=== PATIENT | female | born 2000 | race African-American/Black ===

== ENCOUNTER 2021-03-28 00:43 | Emergency (ER) | payer MEDICAID ==
--- NOTE | 2021-03-28 01:10 | EDM.PDOC ---
ED HPI GENERAL MEDICAL PROBLEM - General Chief Complaint: General Stated Complaint: NOT FEELING WELL Time Seen by Provider: 03/28/21 01:09 Source of Information: Reports: Patient History Limitations: Reports: No Limitations - History of Present Illness INITIAL COMMENTS - FREE TEXT/NARRATIVE: pt arrived with a sore throat and body aches. She states it hit her about half way through her shift. Onset: Today Duration: Hour(s): Location: Reports: Neck, Generalized Associated Symptoms: Reports: Cough, Headaches head Pain Score (Numeric/FACES): 8 - Related Data Allergies Allergy/AdvReac Type Severity Reaction Status Date / Time ibuprofen Allergy Other Verified 03/28/21 01:05 nickel Allergy Itching Verified 03/28/21 01:05 Penicillins Allergy Anaphylactic Verified 03/28/21 01:05 Shock Home Meds: Home Meds Sertraline [Zoloft] 25 mg PO BID 03/28/21 [History] Social & Family History - Caffeine Use Caffeine Use: Reports: Coffee, Soda, Tea - Recreational Drug Use Recreational Drug Use: Yes Recreational Drug Type: Reports: Marijuana/Hashish Recreational Drug Use Frequency: Weekly ED ROS GENERAL - Review of Systems Review Of Systems: See Below Constitutional: Reports: Fever, Chills, Other ( body aches. ) HEENT: Reports: Throat Pain, Other (pt has normal taste and smell) Respiratory: Reports: No Symptoms Cardiovascular: Reports: No Symptoms Endocrine: Reports: No Symptoms GI/Abdominal: Reports: No Symptoms : Reports: No Symptoms Musculoskeletal: Reports: No Symptoms Skin: Reports: No Symptoms Neurological: Reports: No Symptoms ED EXAM, GENERAL - Physical Exam Exam: See Below Free Text/Narrative:: pt arrived with a sore throat. She felt like she had a fever earlier. Exam Limited By: No Limitations General Appearance: Alert, Anxious, Mild Distress Ears: Normal TMs Nose: Normal Inspection Throat/Mouth: Inflammation, Other ( exudate present. ) Head: Atraumatic Neck: Normal Inspection, Lymphadenopathy (R), Lymphadenopathy (L) Respiratory/Chest: No Respiratory Distress Cardiovascular: Regular Rate, Rhythm GI/Abdominal: Soft, Non-Tender (Female) Exam: Deferred Rectal (Female) Exam: Deferred Back Exam: Normal Inspection Extremities: Normal Inspection Neurological: Alert, Oriented, Normal Cognition Psychiatric: Normal Affect Course - Vital Signs Last Recorded V/S: Last Vital Signs Temp 36.6 C 03/28/21 01:06 Pulse 108 H 03/28/21 01:06 Resp 18 03/28/21 01:06 BP 125/72 03/28/21 01:06 Pulse Ox 97 03/28/21 01:06 - Orders/Labs/Meds Orders: Active Orders 24 hr Category Date Time Status CULTURE STREP A CONFIRMATION [] Stat Lab 03/28/21 01:15 Results STREP SCRN A RAPID W CULT CONF [] Stat Lab 03/28/21 01:15 Results Labs: Laboratory Tests 03/28/21 03/28/21 Range/Units 01:25 01:30 WBC 9.9 (4.5-11.0) K/uL RBC 4.66 (3.30-5.50) M/uL Hgb 13.8 (12.0-15.0) g/dL Hct 41.2 (36.0-48.0) % MCV 88 (80-98) fL MCH 30 (27-31) pg MCHC 34 (32-36) % Plt Count 280 (150-400) K/uL Neut % (Auto) 74 H (36-66) % Lymph % (Auto) 15 L (24-44) % Webb % (Auto) 10 H (2-6) % Eos % (Auto) 1 L (2-4) % Baso % (Auto) 0 (0-1) % Monoscreen Negative (NEGATIVE) - Re-Assessments/Exams Free Text/Narrative Re-Assessment/Exam: 03/28/21 02:30 pt had a neg strept and a neg mono. Her wbc was not high but it did appear to look like a bacterial shift. Departure - Departure Time of Disposition: 02:20 Disposition: Home, Self-Care 01 Condition: Fair Clinical Impression: Acute bacterial pharyngitis - Discharge Information Instructions: Pharyngitis, [id number] Referrals: PCP,None [Primary Care Provider] - Forms: ED Department Discharge Care Plan Goals: push fluids, tylenol and motrin for body aches. zithromax rtc if not improving. Sepsis Event Note (ED) - Evaluation Sepsis Screening Result: No Definite Risk - Focused Exam Vital Signs: Vital Signs Temp Pulse Resp BP Pulse Ox 03/28/21 01:06 36.6 C 108 H 18 125/72 97 - My Orders Last 24 Hours: My Active Orders 03/28/21 01:15 CULTURE STREP A CONFIRMATION [RM] Stat STREP SCRN A RAPID W CULT CONF [] Stat - Assessment/Plan Last 24 Hours: My Active Orders 03/28/21 01:15 CULTURE STREP A CONFIRMATION [RM] Stat STREP SCRN A RAPID W CULT CONF [] Stat
== END 2021-03-28 02:30 | disposition home or self-care (01) ==
LOC: JP.ED 00:43
DX: J02.8 Acute pharyngitis due to other specified organisms (principal); B96.89 Other specified bacterial agents as the cause of diseases classified elsewhere; Z88.0 Allergy status to penicillin; Z88.8 Allergy status to other drugs, medicaments and biological substances; Z91.048 Other nonmedicinal substance allergy status
CPT/HCPCS: 36415; 85025; 86308; 87081; 87880-QW; 99283

== ENCOUNTER 2021-07-09 15:35 | Emergency (ER) | payer MEDICAID, OTHER ==
[2021-07-09] MEDS ORDERED: Dental Adhesive 1 Tube DENT ONE (16:16)
--- NOTE | 2021-07-09 16:49 | EDM.PDOC ---
ED HPI GENERAL MEDICAL PROBLEM - General Chief Complaint: ENT Problem Stated Complaint: PAIN IN L JAW AND HEADACHE Time Seen by Provider: 07/09/21 16:05 Source of Information: Reports: Patient History Limitations: Reports: No Limitations - History of Present Illness Onset: Gradual Onset Date: 06/18/21 Duration: Getting Worse Location: Reports: Other (Lower left molar back tooth broken) Quality: Reports: Ache Severity: Moderate Improves with: Reports: None Worsens with: Reports: Breathing, Cold Therapy, Heat Therapy Context: Reports: Trauma (Broken tooth) Associated Symptoms: Reports: No Other Symptoms Treatments [employer]: Reports: Acetaminophen, NSAIDS left tooth Pain Score (Numeric/FACES): 9 - Related Data Allergies Allergy/AdvReac Type Severity Reaction Status Date / Time ibuprofen Allergy Other Verified 07/09/21 15:56 nickel Allergy Itching Verified 07/09/21 15:56 Penicillins Allergy Anaphylactic Verified 07/09/21 15:56 Shock Home Meds: Home Meds Sertraline [Zoloft] 25 mg PO BID 03/28/21 [History] traZODone 50 mg PO ASDIRECTED PRN 07/09/21 [History] Past Medical History - Past Health History Medical/Surgical History: Denies Medical/Surgical History Psychiatric History: Reports: Anxiety, Depression, Psych Hospitalization(s) - Infectious Disease History Infectious Disease History: Reports: None Social & Family History - Caffeine Use Caffeine Use: Reports: Coffee, Soda, Tea - Recreational Drug Use Recreational Drug Type: Reports: Marijuana/Hashish Recreational Drug Use Frequency: Weekly ED ROS ENT - Review of Systems Review Of Systems: See Below Constitutional: Reports: No Symptoms HEENT: Reports: Other (Oral pain left lower jaw into neck and ear. Patient has broken tooth molar #17) Neurological: Reports: No Symptoms ED EXAM, ENT - Physical Exam Exam: See Below Exam Limited By: No Limitations General Appearance: Alert, Moderate Distress Mouth/Throat: Normal Lips, Dental Pain (Broken tooth #17 lower left back tooth), Dental Trauma (Broken tooth approximately 3 weeks ago). No: Gum Swelling Neck: Normal Inspection, Supple, Non-Tender Course - Vital Signs Last Recorded V/S: Last Vital Signs Temp 36.4 C 07/09/21 15:58 Pulse 77 07/09/21 15:58 Resp 16 07/09/21 15:58 BP 125/80 07/09/21 15:58 Pulse Ox 77 L 07/09/21 15:58 - Orders/Labs/Meds Meds: Medications Discontinued Medications Generic Name Dose Route Start Last Admin Trade Name Haseeb PRShira Reason Stop Dose Admin Denture Adhesive 1 applic 07/09/21 16:16 07/09/21 16:57 Dental Adhesive 1 Tube DENT 07/09/21 16:17 1 applic ONETIME ONE Administration - Re-Assessments/Exams Free Text/Narrative Re-Assessment/Exam: 07/09/21 16:48 Dental packing to cover root of broken tooth. Patient tolerated application without difficulty. Patient did have relief once root was covered. Patient instructed to see dentist immediately. Area is not infected at this time. Departure - Departure Time of Disposition: 16:58 Disposition: Home, Self-Care 01 Condition: Good Clinical Impression: Broken tooth - Discharge Information Instructions: Tooth Injuries, [id number] Referrals: PCP,None [Primary Care Provider] - Forms: ED Department Discharge Additional Instructions: Make appointment dentist GIBSON. Reapply dental packing if it comes out prior to seeing dentist. Sepsis Event Note (ED) - Evaluation Sepsis Screening Result: No Definite Risk - Focused Exam Vital Signs: Vital Signs Temp Pulse Resp BP Pulse Ox 07/09/21 15:58 36.4 C 77 16 125/80 77 L 07/09/21 15:47 36.4 C 77 16 125/80 77 L - Assessment/Plan Assessment:: Broken tooth Plan: Sentiment applied to broken tooth. No infection noted at this time. Patient instructed to seek out dentist immediately.
== END 2021-07-09 16:58 | disposition home or self-care (01) ==
LOC: JP.ED 15:35
DX: S02.5XXA Fracture of tooth (traumatic), initial encounter for closed fracture (principal); Z88.0 Allergy status to penicillin; Z91.09 Other allergy status, other than to drugs and biological substances; Z88.8 Allergy status to other drugs, medicaments and biological substances; X58.XXXA Exposure to other specified factors, initial encounter
CPT/HCPCS: 99282; A9270

== ENCOUNTER 2023-03-06 17:16 | Emergency (ER) | payer OTHER ==
[2023-03-06] MEDS ORDERED: Sodium Chloride 0.9% 10 ML Syringe FLUSH PRN (17:37)
[2023-03-06] MEDS ORDERED: fentaNYL 100 MCG/2 ML SDV IVPUSH ONE (17:39)
[2023-03-06] MEDS ORDERED: Ondansetron 4 MG/2 ML SDV IVPUSH ONE (17:39)
[2023-03-06] MEDS ORDERED: Sodium Chloride 0.9% 1,000 ML IV SCH (17:45)
[2023-03-06 18:21] LABS: ESTIMATED GFR 92 mL/min (>60)
[2023-03-06 18:58] LABS: CORONAVIRUS COVID-19 NAA NEGATIVE (NEGATIVE)
[2023-03-06] MEDS ORDERED: HYDROmorphone 0.5 MG/0.5 ML Syringe IVPUSH ONE (19:03)
[2023-03-06] MEDS ORDERED: Iopamidol 755 Mg/ML 100 ML Bottle IV SCH (19:15)
[2023-03-06] MEDS ORDERED: Sodium Chloride 0.9% 75 ML IV SCH (19:15)
[2023-03-06] MEDS ORDERED: Pantoprazole 40 MG Tab.CR PO STA (21:10)
== END 2023-03-06 21:23 | disposition home or self-care (01) ==
LOC: JP.ED 17:16
DX: O99.63 Diseases of the digestive system complicating the puerperium (principal); K21.00 Gastro-esophageal reflux disease with esophagitis, without bleeding; Z88.0 Allergy status to penicillin; Z88.8 Allergy status to other drugs, medicaments and biological substances; Z91.048 Other nonmedicinal substance allergy status; Z72.0 Tobacco use; Z20.822 Contact with and (suspected) exposure to COVID-19
CPT/HCPCS: 0241U; 36415; 71046; 71275; 80053; 83605; 83690; 83880; 84484; 84703; 85025; 93005; 96361; 96374; 96375; 99285; A9270; J1170; J2405; J3010; J3490; J7030; Q9967

== ENCOUNTER 2023-07-22 19:07 | Emergency (ER) | payer OTHER | END 2023-07-22 21:32 | disposition left against medical advice (07) | LOC: JP.ED 19:07 | DX: Z53.21 Procedure and treatment not carried out due to patient leaving prior to being seen by health care provider (principal) ==